=== PATIENT | male | born 1940 | race Caucasian/White ===

== ENCOUNTER 2024-09-07 05:35 | Day surgery (SDC) | payer MEDICARE, BC ==
[2024-08-31 10:54] LABS: BASOPHILS % (AUTO) 0.4 % (0-1); EOSINOPHILS # (AUTO) 0.4 X10'3 (0-0.9); EOSINOPHILS % (AUTO) 4.6 % (0-6); LYMPHOCYTES # (AUTO) 1.5 X10'3 (1.1-4.8); LYMPHOCYTES % (AUTO) 17.4 % (21-51); MEAN CORPUSCULAR HEMOGLOBIN 33.8 PG (27.0-31.0); MEAN CORPUSCULAR HGB CONC 34.4 g/dL (33.0-36.5); MEAN CORPUSCULAR VOLUME 98.1 FL (78-98); MEAN PLATELET VOLUME 7.8 FL (7.4-10.4); MONOCYTES # (AUTO) 0.5 X10'3 (0-0.9); MONOCYTES % (AUTO) 6.2 % (2-12); NEUTROPHILS # (AUTO) 6.3 X10'3 (1.8-7.7); NEUTROPHILS % (AUTO) 71.4 % (42-75); PRE OP HEMATOCRIT 41.8 % (42.0-52.0); PRE OP HEMOGLOBIN 14.4 g/dL (14.0-17.9); PRE OP PLATELET COUNT 315 X10'3 (140-440); PRE OP WHITE BLOOD COUNT 8.8 10'3 (4.8-10.8); RED BLOOD COUNT 4.26 X10'6 (4.70-6.10); RED CELL DISTRIBUTION WIDTH 15.1 % (11.5-14.5)
[2024-08-31 11:08] LABS: ALBUMIN 3.4 G/DL (3.4-5.0); ALBUMIN/GLOBULIN RATIO 0.8 (1.1-1.5); ALKALINE PHOSPHATASE 51 IU/L (46-116); BLOOD UREA NITROGEN 14 MG/DL (7-18); BUN/CREATININE RATIO 14.1 (10.0-20.0); CALCIUM 8.7 MG/DL (8.5-10.1); CHLORIDE 106 MMOL/L (99-107); CREATININE 0.99 MG/DL (0.60-1.10); PRE OP ALT 26 U/L (30-65); PRE OP ANION GAP 6 (8-16); PRE OP AST 21 U/L (10-37); PRE OP BILIRUB, TOTAL 0.7 MG/DL (0.0-1.0); PRE OP GLUCOSE 94 MG/DL (70-104); PRE OP SODIUM 141 MMOL/L (135-145); TOTAL CARBON DIOXIDE 29.1 MMOL/L (24-32); TOTAL PROTEIN 7.9 G/DL (6.4-8.2); eGFR 73 ML/MIN
[~2024-09-07] VITALS: Ht 172.7 cm; Wt 93.9 kg
[2024-09-07] VITALS (18 sets, daily range): BP systolic 90–153; BP diastolic 52–93; PULSE 80–107; RESP 12–19; TEMP 98.4; O2SAT 93–99
[~2024-09-07 05:35] MED LIST: CHOL500049 PO; FOLI1TAB27 PO; HYDR-3965 PO; LATA2.5D14 EACHEYE; METH2.5T PO; NOR5T PO; PRAV20TA60 PO; PYRI60TA PO
[2024-09-07] MEDS: tamsulosin 0.4mg capsule PO ONE (06:14)
[2024-09-07] MEDS: famotidine 20mg tablet PO ONE (06:14)
[2024-09-07] MEDS: ceFAZolin 2gm in dextrose, iso 50 ML IV ONE (06:15)
[2024-09-07] MEDS: ringers solution, lacted 1,000 ML IV SCH (06:15)
[2024-09-07] MEDS ORDERED: BUPIVAcaine 2.5mg/ml inj 50ml vial (contains preservative) ONE (06:42)
[2024-09-07] MEDS ORDERED: LIDOcaine 1% 30ml preserv. free vial ONE (06:42)
[2024-09-07] MEDS ORDERED: midazolam 1 mg/ML 2ml injection ONE (07:17)
[2024-09-07] MEDS ORDERED: sevoflurane 250ml liquid IH ONE (07:17)
[2024-09-07] MEDS ORDERED: fentaNYL/PF 50MCG/1 ML 2ML syringe ONE (07:17)
[2024-09-07] MEDS ORDERED: sugammadex 200mg/2ml injection IV ONE (07:18)
[2024-09-07] MEDS ORDERED: LIDOcaine 2% (20mg/ml) 5ml vial ONE (07:19)
[2024-09-07] MEDS ORDERED: propofol inj 20 ML IV ONE (07:19)
[2024-09-07] MEDS ORDERED: dexamethasone sod phosphate 4mg/ml inj. ONE (07:19)
[2024-09-07] MEDS ORDERED: rocuronium 10mg/ml inj IV ONE (07:20)
[2024-09-07] MEDS ORDERED: ondansetron/PF 4mg/2ml inj ONE (07:20)
[2024-09-07] MEDS ORDERED: acetaminophen 1,000mg/100ml IV 100 ML IV ONE (07:45)
[2024-09-07] MEDS ORDERED: labetalol 20mg/4ml (5mg/ml) syringe IV PRN (08:10)
[2024-09-07] MEDS ORDERED: morphine 2 MG/ML inj. syringe IV PRN (08:10)
[2024-09-07] MEDS ORDERED: hydrALAZINE 20mg/ml inj. IV PRN (08:10)
[2024-09-07] MEDS ORDERED: ondansetron/PF 4mg/2ml inj IV PRN (08:10)
[2024-09-07] MEDS ORDERED: ringers solution, lacted 1,000 ML IV SCH (08:10)
[2024-09-07] MEDS ORDERED: fentaNYL/PF 50MCG/1 ML 2ML syringe IV PRN ×2 (08:10)
[2024-09-07] MEDS ORDERED: ePHEDrine 50MG/ML INJ. ONE (08:23)
[2024-09-07] MEDS: morphine 4 MG/ML inj SYRINge IV PRN (09:01)
[2024-09-07] MEDS ORDERED: HYDROcodone/acetaminophen 5mg/325mg tablet PO PRN (09:15)
== END 2024-09-07 11:56 | disposition home or self-care (01) ==
LOC: PAS 05:35
PROVIDERS: ATTEND Surgery
DX: K40.90 Unilateral inguinal hernia, without obstruction or gangrene, not specified as recurrent (principal); K42.9 Umbilical hernia without obstruction or gangrene; I49.3 Ventricular premature depolarization; I10 Essential (primary) hypertension; G70.00 Myasthenia gravis without (acute) exacerbation; Z98.890 Other specified postprocedural states; E78.5 Hyperlipidemia, unspecified; Z79.1 Long term (current) use of non-steroidal anti-inflammatories (NSAID); Z82.49 Family history of ischemic heart disease and other diseases of the circulatory system; Z82.3 Family history of stroke; Z82.61 Family history of arthritis; Z82.0 Family history of epilepsy and other diseases of the nervous system
CPT/HCPCS: 36415; 49591; 49650; 80053; 82948; 85025; 93005; A4215; A4615; A4618; C1781; J0131; J0690; J1100; J2003; J2250; J2270; J2371; J2405; J2704; J3010; J3490; J7030; J7120; Z7506; Z7508; Z7512; Z7610